=== PATIENT | male | born 1990 | race Caucasian/White ===

== ENCOUNTER 2021-08-16 17:19 | Emergency (ER) | payer OTHER ==
[2021-08-16 17:53] LABS: BASOPHIL 0.5 % (0-2); EOSINOPHIL 0 % (0-5); HCT 47.1 % (42.0-52.0); HGB 16.2 g/dl (13.2-18.0); LYMPHOCYTE 10.5 % (15-48); MCHC 34.4 g/dL (32.0-36.0); MCV 84.3 fL (78.0-100.0); MONOCYTE 4.9 % (0-12); MPV 10.1 fL (6.0-9.5); NEUTROPHIL 83.7 % (41-80); NRBC 0; PLT 354 K/uL (150-400); RBC 5.59 M/uL (4.70-6.00); RDW 12.2 % (11.5-14.0); WBC 12.9 K/uL (4.0-10.5)
[2021-08-16 18:07] LABS: BUN/CREAT RATIO (CALC) 25.5 RATIO; CREATININE 1.1 mg/dL (0.67-1.17); POTASSIUM 3.4 mmol/L (3.5-5.1)
[2021-08-16 18:18] LABS: FLU B NEGATIVE B (NEGATIVE B)
[2021-08-16 18:20] LABS: BILIRUBIN NEGATIVE (NEGATIVE); BLOOD TRACE-INTACT Ery/uL (NEGATIVE); CLARITY CLEAR (CLEAR); COLOR YELLOW (YELLOW); GLUCOSE (U) NORMAL (NORMAL); LEUKOCYTES NEGATIVE Leu/uL (NEGATIVE); NITRITE NEGATIVE (NEGATIVE); PROTEIN NEGATIVE (NEGATIVE); SPECIFIC GRAVITY 1.025 (1.001-1.030); UROBILINOGEN 0.2 mg/dL (0.2-1.0)
[2021-08-16 18:43] LABS: BACTERIA TRACE; MUCOUS TRACE; URINARY WBC RARE
== END 2021-08-16 19:20 | disposition home or self-care (01) ==
LOC: FER 17:19
PROVIDERS: Nurse Practitioner Family
DX: B34.9 Viral infection, unspecified (principal); Z28.310 Unvaccinated for COVID-19
CPT/HCPCS: 36415; 80048; 81001; 85025; 87804; 87880; 87899; J2405; J7030